=== PATIENT | male | born 1960 | race Caucasian/White ===

== ENCOUNTER 2016-08-28 11:12 | Emergency (ER) | payer BC ==
[2016-08-28 11:21] VITALS: BP 111/73
--- NOTE | 2016-08-28 14:11 | UC ---
Lisa Villafuerte Alfonso, scribed for Alan Bowles MD on 08/28/16 at 1154 . Respiratory Complaint HPI - HPI Summary HPI Summary: This patient is a 55 year old male presenting to [facility] c/o a productive cough since 3 days ago. Reports is currently experiencing similar symptoms. He rates the pain 4/10 in severity. Sx aggravated and alleviated by nothing. He reports sore throat, and chest congestion. He denies fever, rhinorrhea, and wheezing. Denies PMHx of asthma, diabetes mellitus, and HTN. - History of Current Complaint Chief Complaint: UCRespiratory Stated Complaint: CONGESTION Time Seen by Provider: 08/28/16 11:41 Hx Obtained From: Patient Onset/Duration: Sudden Onset, Lasting Days - 3, Still Present Timing: Constant Severity Initially: Moderate Severity Currently: Moderate Pain Intensity: 4 Pain Scale Used: 0-10 Numeric Character: Cough: Productive Aggravating Factors: Nothing Alleviating Factors: Nothing Associated Signs And Symptoms: Positive: Nasal Congestion. Negative: Fever, Wheezing - Allergies/Home Medications Allergies/Adverse Reactions: Allergies Allergy/AdvReac Type Severity Reaction Status Date / Time Cephalexin [From Keflex] Allergy See Comment Verified 08/28/16 11:22 PMH/Surg Hx/FS Hx/Imm Hx - Surgical History Surgical History: Yes Surgery Procedure, Year, and Place: scrotal surgery fertility. biopsy of lung - Family History Known Family History: Positive: Other - Cancer Negative: Diabetes - Social History Alcohol Use: Occasionally Substance Use Type: None Smoking Status (MU): Never Smoked Tobacco - Immunization History Most Recent Influenza Vaccination: 12/2012 Review of Systems Constitutional: Other - Negative fever ENT: Sore Throat Respiratory: Cough - Productive, Other - Positive chest congestion; negative rhinorrhea and wheezing All Other Systems Reviewed And Are Negative: Yes Physical Exam Triage Information Reviewed: Yes Vital Signs: Initial Vital Signs Temp 98.1 F 08/28/16 11:16 Pulse 80 08/28/16 11:16 Resp 18 08/28/16 11:16 BP 111/73 08/28/16 11:16 Pulse Ox 97 08/28/16 11:16 Vital Signs Reviewed: Yes - Additional Comments The patient is well-nourished in no acute distress and in no acute pain. The skin is warm and dry and skin color reflects adequate perfusion. HEENT: The head is normocephalic and atraumatic. The pupils are equal and reactive. The conjunctivae are clear and without drainage. Nares are patent and without drainage. No rhinorrhea or post nasal drip. Mouth reveals moist mucous membranes and the throat is without erythema and exudate. The external ears are intact. The ear canals are patent and without drainage. The tympanic membranes are intact. Neck is supple with full range of motion and non-tender. There are no carotid bruits. There is no neck vein distension. Respiratory: Chest is non-tender. Lungs have rhonchi in the left base. Cardiovascular: Heart is regular rate and rhythm. There is no murmur or rub auscultated. There is no peripheral edema and pulses are symmetrical and equal. Neurological: Patient is alert and oriented to person, place and time. Psychiatric: The patient has an appropriate affect and does not exhibit any anxiety or depression. Diagnostic Evaluation - Laboratory O2 Sat by Pulse Oximetry: 97 Respiratory Course/Dx - Course Course Of Treatment: A 55-year-old M presents to [facility] with a CC of productive cough since 3 days ago. He reports sore throat, and chest congestion. He denies fever, rhinorrhea, and wheezing. Patient will be discharged with follow up from PCP in 1 week. Pt is agreeable with this plan. - Differential Dx/Diagnosis Differential Diagnosis/HQI/PQRI: Bronchitis, Lower Resp Infection Provider Diagnoses: acute bronchitis Discharge - Discharge Plan Condition: Stable Disposition: HOME Prescriptions: Azithromycin TAB* [Zithromax TAB (Z-CUAUHTEMOC) 250 mg #6 tabs] 2 tab PO .TODAY, THEN 1 DAILY #1 cuauhtemoc guaiFENesin/CODIEN 100MG-10MG* [Robitussin AC 100Mg-10Mg*] 10 ml PO Q4H PRN # 120 udc MDD 40 ml PRN Reason: cough Patient Education Materials: Acute Bronchitis (ED) Referrals: [facility] [place] [facility] REFERRAL [Outside] - 1 Week The documentation as recorded by the Lisa zaman Alfonso accurately reflects the service I personally performed and the decisions made by me, Alan Bowles MD.
== END 2016-08-28 12:03 | disposition home or self-care (01) ==
LOC: UCEAST 11:12
DX: J20.9 Acute bronchitis, unspecified (principal)
CPT/HCPCS: 99212; G0463

== ENCOUNTER 2017-12-30 11:33 | Emergency (ER) | payer BC ==
--- NOTE | 2017-12-30 13:43 | UC ---
Throat Pain/Nasal Germain HPI - HPI Summary HPI Summary: 57 y/o male presents to the urgent care c/o nasal congestion w/ green nasal discharge and cough for the past week. Pt states sinus pain, sore throat is 7/ 10 w/ swallowing. Cough is worsen at night time, unable to sleep well. Pt has not taking anything to alleviate symptoms. Pt states low grade fever at the beginning of symptoms. Pt denies SOB, chest pain, abdominal pain, N/v/D. - History of Current Complaint Chief Complaint: UCRespiratory Stated Complaint: SORE THROAT, COUGH Time Seen by Provider: 12/30/17 13:33 Hx Obtained From: Patient Onset/Duration: Gradual Onset, Lasting Weeks - 1 week, Still Present, Worse Since - yesterday Severity: Moderate Pain Intensity: 7 - sinus pain and MICHAEL and sore throat Pain Scale Used: 0-10 Numeric Cough: Sputum Appears - yellowish Associated Signs & Symptoms: Positive: Dysphagia, Nasal Discharge - yellowish, Fever - at the betinning of symptoms - Epiglottits Risk Factors Epiglottis Risk Factors: Negative - Allergies/Home Medications Allergies/Adverse Reactions: Allergies Allergy/AdvReac Type Severity Reaction Status Date / Time No Known Allergies Allergy Verified 12/30/17 11:46 PMH/Surg Hx/FS Hx/Imm Hx Previously Healthy: Yes Other Respiratory History: Sarcoidosis - Surgical History Surgical History: Yes Surgery Procedure, Year, and Place: scrotal surgery fertility. biopsy of lung - Family History Known Family History: Negative: Diabetes Family History: Cancer, dyslipidemia - Social History Occupation: Employed Full-time Lives: With Family Alcohol Use: Occasionally Substance Use Type: None Smoking Status (MU): Never Smoked Tobacco - Immunization History Most Recent Influenza Vaccination: 12/2012 Review of Systems Constitutional: Negative Skin: Negative Eyes: Negative ENT: Sore Throat, Nasal Discharge - yellowish, Sinus Congestion, Sinus Pain/ Tenderness Respiratory: Cough - w/ yellowish phlegm at times Cardiovascular: Negative Gastrointestinal: Negative Genitourinary: Negative Motor: Negative Neurovascular: Negative Musculoskeletal: Negative Neurological: Headache Psychological: Negative Is Patient Immunocompromised?: No All Other Systems Reviewed And Are Negative: Yes Physical Exam - Summary Physical Exam Summary: Vitals: reviewed General: Well developed, well-nourished male patient with NAD. Head and face: Normocephalic and atraumatic, Positive tenderness over the frontal and maxillary sinuses.. Eyes: PERRLA, EOMI x 2. Normal conjunctiva. No eye discharge. ENT: Ears and TM with normal limits. Nose: edematous and erythematous nasal mucosa with with yellowish discharge and erythematous mucosa. Pharynx with erythema, no exudate. +green PND Neck: Supple, no JVD, no carotid bruits and no lymphadenopathy. Lungs: clear, no rales, no rhonchi, no wheezes. CVS: RRR, S1 and S2 present no murmurs or gallops appreciated. Abdomen: soft nontender with positive bowel sounds. Extremities: no edema noted. Neuro: WNL. Skin: warm and dry Triage Information Reviewed: Yes Vital Signs: Initial Vital Signs Temp 99.1 F 12/30/17 11:40 Pulse 75 12/30/17 11:40 Resp 18 12/30/17 11:40 BP 132/81 12/30/17 11:40 Pulse Ox 99 12/30/17 11:40 Throat Pain/Nasal Course/Dx - Course Course Of Treatment: 57 y/o male presents to the urgent care c/o nasal congestion w/ green nasal discharge and cough for the past week. Pt states sinus pain, sore throat is 7/10 w/ swallowing. Cough is worsen at night time, unable to sleep well. Pt has not taking anything to alleviate symptoms. Pt states low grade fever at the beginning of symptoms. Pt denies SOB, chest pain, abdominal pain, N/v/D. Hx obtained. Pt w/ bacterial sinusitis on examination. Rapid strep negative. Pt with 1 week of symptoms getting worse. Pt Rx Amoxicillin PO and flonase nasal spray. Tessalon PO for cough. Discharge instructions explained to Pt. Advised to Return to the clinic or PCP if symptoms do not improve.d/c instructions explained. Pt understood and agreed with plan of care. - Differential Dx/Diagnosis Differential Diagnosis/HQI/PQRI: Influenza, Laryngitis, Pharyngitis, Sinusitis, URI Provider Diagnoses: 1- Acute bacterial sinusitis. 2- cough Discharge - Sign-Out/Discharge Documenting (check all that apply): Patient Departure - d/c home All imaging exams completed and their final reports reviewed: No Studies - Discharge Plan Condition: Stable Disposition: HOME Prescriptions: Amoxicillin/Clavulanate TAB* [Augmentin TAB 875*] 875 mg PO BID #20 tab Benzonatate CAP* [Tessalon 100 MG CAP*] 100 mg PO TID #21 cap Fluticasone NASAL SPRAY 50MCG* [Flonase NASAL SPRAY 50MCG*] 2 spray BOTH NARES DAILY #1 btl Patient Education Materials: Sinusitis (ED) Referrals: Sindi Hartmann [Primary Care Provider] - 3 Days Additional Instructions: 1- Please increase fluid intake and rest. take full course of antibiotic to avoid resistance 2-Use Flonase as directed to help drain fluid. Also buy saline drops to clear sinuses as directed. 3-Take Tessalon tabs PO to alleviates cough. Increase fluid intake, rest and avoid strenuous exercises 4-Return to the clinic or PCP in 3 days if symptoms do not improve for further management and treatment - Billing Disposition and Condition Condition: STABLE Disposition: Home
[2017-12-30 13:57] VITALS: BP 158/74
== END 2017-12-30 14:04 | disposition home or self-care (01) ==
LOC: UCEAST 11:33
DX: J01.90 Acute sinusitis, unspecified (principal); R05 Cough
CPT/HCPCS: 87651; 99212; G0463

== ENCOUNTER 2018-04-13 13:25 | Emergency (ER) | payer BC ==
[2018-04-13] MEDS ORDERED: Tetracaine 0.5% OPTH.SOL 4 ML* 1 DROP BTL BOTH EYES ONE (13:26)
[2018-04-13] MEDS ORDERED: Fluorescein Sodium TOPICAL* 1 MG TEST STRIP OPHTHALMIC ONE (13:26)
[2018-04-13 13:38] VITALS: BP 134/72
--- NOTE | 2018-04-13 13:40 | UC ---
Eye Complaint HPI - HPI Summary HPI Summary: 57 yo male presents with right eye FB. He tells me that he was working on a truck today with his safety glasses on. While working, something fell from the truck and got into his right eye. Has had pain and FB sensation in his eye since. He has rubbed the area aggressively with no relief. Came directly to . - History of Current Complaint Chief Complaint: UCEye Stated Complaint: FB IN EYE Time Seen by Provider: 04/13/18 13:40 Hx Obtained From: Patient Onset/Duration: Sudden Onset Severity Initially: Severe Severity Currently: Severe Pain Intensity: 8 Pain Scale Used: 0-10 Numeric - Allergies/Home Medications Allergies/Adverse Reactions: Allergies Allergy/AdvReac Type Severity Reaction Status Date / Time No Known Allergies Allergy Verified 04/13/18 13:38 PMH/Surg Hx/FS Hx/Imm Hx - Additional Past Medical History Additional PMH: None - Surgical History Surgical History: Yes Surgery Procedure, Year, and Place: scrotal surgery fertility. biopsy of lung - Family History Known Family History: Positive: Other - Cancer Negative: Diabetes Family History: Cancer, dyslipidemia - Social History Occupation: Employed Full-time Lives: With Family Alcohol Use: Occasionally Substance Use Type: None Smoking Status (MU): Never Smoked Tobacco - Immunization History Most Recent Influenza Vaccination: 12/2012 Review of Systems All Other Systems Reviewed And Are Negative: Yes Constitutional: Positive: Negative Skin: Positive: Negative Eyes: Positive: Eye Redness, Other - FB sensations ENT: Positive: Negative Respiratory: Positive: Negative Cardiovascular: Positive: Negative Neurovascular: Positive: Negative Neurological: Positive: Negative Psychological: Positive: Negative Physical Exam - Summary Physical Exam Summary: GENERAL: WDWN. No pain distress. SKIN: No rashes, sores, lesions, or open wounds. HEENT: Head: AT/NC Eyes: EOM intact. PERRLA. RIGHT EYE: Mild scleral injection. Conjunctiva without erythema or inflammation. Obvious corneal abrasion at the 12 o'clock position. No FB appreciated on cornea or under the eyelids. Fluorescein dye exam reveal 3mm in length and 2mm in width corneal abrasion without maria l sign or other abnormalities. CHEST: No accessory muscle use. Breathing comfortably and in no distress. CV: Pulses intact. Cap refill <2seconds NEURO: Alert. PSYCH: Age appropriate behavior. Triage Information Reviewed: Yes Vital Signs: Initial Vital Signs Temp 98.2 F 04/13/18 13:34 Pulse 73 04/13/18 13:34 Resp 18 04/13/18 13:34 BP 134/72 04/13/18 13:34 Pulse Ox 99 04/13/18 13:34 Vital Signs Reviewed: Yes Eye Complaint Course/Dx - Course Course Of Treatment: Tetracaine was instilled into the eye and pt experienced relief. The eye was swept with a sterile cotton swab, no FB was appreciated. Suspect corneal abrasion - given apparent depth and size of abrasion, strongly advised to f/u with an eye doctor to be rechecked. - Differential Dx/Diagnosis Provider Diagnosis: Corneal abrasion Discharge - Sign-Out/Discharge Documenting (check all that apply): Patient Departure All imaging exams completed and their final reports reviewed: No Studies - Discharge Plan Condition: Stable Disposition: HOME Prescriptions: Ketorolac 0.5% OPHTH (NF) 1 drop RIGHT EYE QID PRN #1 btl PRN Reason: Pain Ofloxacin 0.3% (Eye Drop) [Ocuflox OPTH 0.3% (Eye Drop)] 1 drop RIGHT EYE QID # 1 btl Patient Education Materials: Corneal Abrasion (ED) Referrals: Sindi Hartmann [Primary Care Provider] - Ant Tello MD [Medical Doctor] - As Soon As Possible Additional Instructions: If you develop a fever, shortness of breath, chest pain, new or worsening symptoms - please call your PCP or go to the ED. Please call Dr. Tello (eye doctor) at the number below to schedule a follow up appointment for a recheck this week - Billing Disposition and Condition Condition: STABLE Disposition: Home
== END 2018-04-13 14:19 | disposition home or self-care (01) ==
LOC: UCEAST 13:25
DX: S05.01XA Injury of conjunctiva and corneal abrasion without foreign body, right eye, initial encounter (principal); X58.XXXA Exposure to other specified factors, initial encounter; Y92.9 Unspecified place or not applicable
CPT/HCPCS: 99212; A9270-GY; G0463